=== PATIENT | female | born 1950 | race Caucasian/White ===

== ENCOUNTER → 2016-04-21 | Outpatient (CLI) | payer OTHER ==
[~2016-04-21] MED LIST: CALC500C70 PO; CHOL100027 PO; CITA20TA9 PO; GABA600T PO; MULT-506 PO; NRN/300 PO; TIMO0.2534 OPR
[2016-04-21 16:53] LABS: ALT/SGPT 22 U/L (12-78); BLOOD UREA NITROGEN 16 mg/dl (7-18); BUN/CREATININE RATIO 15.6 (10-20); CALCIUM 9.2 mg/dl (8.5-10.1); CARBON DIOXIDE 30 mmol/L (21-32); CHLORIDE 103 mmol/L (98-107); GLUCOSE 82 mg/dl (70-99); SODIUM 139 mmol/L (136-145)
[2016-04-21 17:06] LABS: ALKALINE PHOSPHATASE 57 U/L (45-117); AST/SGOT 23 U/L (15-37); PHOSPHORUS 3.1 mg/dl (2.5-4.9)
== END | disposition home or self-care (01) ==
LOC: C.LABBC 13:17
PROVIDERS: ATTEND Internal Medicine Endocrinology, Diabetes & Metabolism
DX: M81.0 Age-related osteoporosis without current pathological fracture (principal); E03.9 Hypothyroidism, unspecified; E55.9 Vitamin D deficiency, unspecified; Z78.0 Asymptomatic menopausal state

== ENCOUNTER → 2016-06-13 | Outpatient (CLI) | payer OTHER ==
[2016-06-13 17:20] LABS: BLOOD UREA NITROGEN 22 mg/dl (7-18); CREATININE 0.98 mg/dl (0.60-1.20)
== END | disposition home or self-care (01) ==
LOC: C.LABBC 15:15
PROVIDERS: ATTEND Physician Assistant
DX: M54.16 Radiculopathy, lumbar region (principal)

== ENCOUNTER → 2016-06-20 | Outpatient (CLI) | payer OTHER ==
[~2016-06-20] MED LIST changes: +GADAVIST IV PRN
--- NOTE | 2016-06-20 11:11 | DIAGNOSTIC IMAGING REPORT ---
LUMBAR SPINE MRI WITH AND WITHOUT CONTRAST HISTORY: Back pain. Neuropathy. LUMBAGO,LUMBAR RADICULOPATHY TECHNIQUE: Multiplanar multisequence MRI of the lumbar spine was performed both before and after the intravenous administration of contrast. COMPARISON: None. FINDINGS: For the purpose of the report the L5-S1 disc space will be located on axial image 27 of 30. Severe degenerative disc change at the entire lumbar region. Reactive edematous change as well as degenerative erosive change of vertebral endplates throughout. No evidence for compression deformity. Postcontrast sagittal images suggest potential mild enhancement of the lower aspect of the thoracic cord regions as well as the nerve root structures. Possibly of a component of arachnoiditis is considered. L1-L2: Minimal broad-based disc bulge. L2-L3: Mild osteophytic narrowing of the neuroforamina bilaterally. Mild broad-based disc bulge. L3-L4: Broad-based bulging disc. Moderate narrowing of the neuroforamina bilaterally. L4-L5: Mild broad-based disc bulge. Minimal impact of the anterior thecal sac. Moderate narrowing of the right and to lesser extent left neural foramina. L5-S1: Moderate osteophytic narrowing of the neuroforamina bilaterally. No impact upon the thecal sac. Posterior bulging disc. IMPRESSION: 1. Severe degenerative change throughout the entire lumbar region. 2. 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 Broad-based bulging disc components at virtually all levels of the lumbar region with at least moderate narrowing of the neural foramina bilaterally at multiple levels. 4. No evidence for a high-grade/degree of spinal stenosis Electronically signed by: Sen Sarmiento M.D. 06/20/2016 11:10 AM Dictated Date/Time: 06/20/2016 11:05 AM
== END | disposition home or self-care (01) ==
LOC: C.MRIBC 09:42
PROVIDERS: ATTEND Physician Assistant
DX: M51.16 Intervertebral disc disorders with radiculopathy, lumbar region (principal)

== ENCOUNTER → 2016-10-06 | Outpatient (CLI) | payer OTHER ==
[~2016-10-06] MED LIST changes: -GADAVIST IV PRN
[2016-10-06 10:19] LABS: ALT/SGPT 24 U/L (12-78); AST/SGOT 19 U/L (15-37); BLOOD UREA NITROGEN 11 mg/dl (7-18); BUN/CREATININE RATIO 12.9 (10-20); CALCIUM 8.8 mg/dl (8.5-10.1); CARBON DIOXIDE 30 mmol/L (21-32); CHLORIDE 108 mmol/L (98-107); CHOLESTEROL 242 mg/dl (0-200); CREATININE 0.87 mg/dl (0.60-1.20); GLUCOSE 90 mg/dl (70-99); POTASSIUM 4.1 mmol/L (3.5-5.1); SODIUM 141 mmol/L (136-145); TRIGLYCERIDES 82 mg/dl (0-150); VERY LOW DENSITY LIPOPROT CALC 16 mg/dl
[2016-10-06 10:22] LABS: ALB/GLOB RATIO 1.1 (0.9-2); ALKALINE PHOSPHATASE 45 U/L (45-117); CHOLESTEROL/HDL RATIO 2.3; HDL CHOLESTEROL 107 mg/dl; LDL CHOLESTEROL CALCULATED 119 mg/dl
== END | disposition home or self-care (01) ==
LOC: C.LAB1850 08:20
PROVIDERS: ATTEND Physician Assistant
DX: Z00.00 Encounter for general adult medical examination without abnormal findings (principal); M81.0 Age-related osteoporosis without current pathological fracture

== ENCOUNTER → 2016-11-02 | Outpatient (CLI) | payer OTHER ==
--- NOTE | 2016-11-02 14:19 | MAMMOGRAPHY REPORT ---
BILATERAL DIGITAL SCREENING MAMMOGRAM TOMOSYNTHESIS WITH CAD: 11/02/2016 CLINICAL HISTORY: Routine screening. Patient has no complaints. TECHNIQUE: Breast tomosynthesis in addition to standard 2D mammography was performed. Current study was also evaluated with a Computer Aided Detection (CAD) system. COMPARISON: Comparison is made to exams dated: 10/30/2014 mammogram, 11/10/2015 mammogram, 10/24/2013 ma mmogram, 10/18/2012 mammogram, 10/18/2011 mammogram, and 10/21/2010 mammogram - [facility]. BREAST COMPOSITION: There are scattered areas of fibroglandular density in both breasts. FINDINGS: No suspicious masses, calcifications, or areas of architectural distortion are noted in ei ther breast. There has been no significant interval change compared to prior exams. Scattered bilater al benign-appearing calcifications are not significantly changed. Circumscribed benign-appearing 11 mm mass in the left upper outer quadrant is stable. IMPRESSION: ACR BI-RADS CATEGORY 2: BENIGN There is no mammographic evidence of malignancy. A 1 year screening mammogram is recommended. The pa tient will receive written notification of the results. Approximately 10% of breast cancers are not detected with mammography. A negative mammographic report should not delay biopsy if a clinically suggestive mass is present. Hollie Griggs M.D. /:11/02/2016 13:24:15 Metalworker: Gina GUALLPAR, M, [facility] letter sent: Normal 1/2 BI-RADS Code: ACR BI-RADS Category 2: Benign
== END | disposition home or self-care (01) ==
LOC: C.MAMM 12:00
PROVIDERS: ATTEND Obstetrics & Gynecology
DX: Z12.31 Encounter for screening mammogram for malignant neoplasm of breast (principal)

== ENCOUNTER → 2016-12-04 | Outpatient (CLI) | payer OTHER | END | disposition home or self-care (01) | LOC: C.MAMM 13:12 | PROVIDERS: ATTEND Physician Assistant | DX: M81.0 Age-related osteoporosis without current pathological fracture (principal); M85.832 Other specified disorders of bone density and structure, left forearm ==

== ENCOUNTER → 2017-03-13 | Outpatient (CLI) | payer OTHER ==
[2017-03-13 14:50] LABS: BLOOD UREA NITROGEN 20 mg/dl (7-18); CALCIUM 9.1 mg/dl (8.5-10.1); CARBON DIOXIDE 26 mmol/L (21-32); CREATININE 1.01 mg/dl (0.60-1.20); GLUCOSE 91 mg/dl (70-99); POTASSIUM 4.3 mmol/L (3.5-5.1); SODIUM 139 mmol/L (136-145)
== END | disposition home or self-care (01) ==
LOC: C.LABBC 10:34
PROVIDERS: ATTEND Nurse Practitioner Adult Health
DX: R03.0 Elevated blood-pressure reading, without diagnosis of hypertension (principal)

== ENCOUNTER 2022-12-29 14:32 | Inpatient (IN) ==
[2022-12-29 16:09] LABS: Basophils # (auto) 0.05 K/uL (0.00-0.20); Basophils % (auto) 0.6 %; Eosinophils # (auto) 0.38 K/uL (0.00-0.50); Eosinophils % (auto) 4.7 %; Hematocrit (blood only) 45.2 % (37.0-47.0); Hemoglobin 15.5 g/dl (12.0-16.0); Immature Granulocytes # (auto) 0.05 K/uL (0.01-0.20); Immature Granulocytes % (auto) 0.6 %; Lymphocytes # (auto) 3.47 K/uL (1.20-3.40); Lymphocytes % (auto) 42.9 %; Mean Corpuscular Hgb Conc 34.3 g/dL (32.0-36.0); Mean Corpuscular Volume 99.1 fL (80.0-100.0); Mean Platelet Volume 9.1 fL (9.4-12.4); Monocytes # (auto) 0.66 K/uL (0.11-0.59); Monocytes % (auto) 8.2 %; Neutrophils # (auto) 3.47 K/uL (1.40-6.50); Platelet Count 437 K/uL (130-400); RDW Coefficient of Variation 12.3 % (11.5-14.5); RDW Standard Deviation 44.9 fL (36.4-46.3); Red Blood Count 4.56 M/uL (4.20-5.40); White Blood Count 8.08 K/ul (4.8-10.8)
[2022-12-29 16:26] LABS: Albumin Globulin Ratio 1.4 (0.9-2); Albumin Level 4.5 gm/dl (3.4-5.0); BUN Creatinine Ratio 16.4 (10-20); Bilirubin,Total 0.6 mg/dl (0.2-1.0); Calcium 10.6 mg/dl (8.6-10.3); Creatinine Clr Calc Pharmacy 36.6 ml/min; Est GFR (African American) 58.1 ml/min; Est GFR (Non-African American) 50.1 ml/min; Globulin 3.2 gm/dl (2.5-4.0); Potassium 3.9 mmol/L (3.5-5.1); Total Protein 7.7 gm/dl (6.0-8.3)
[2022-12-29 16:31] LABS: Troponin I High Sensitivity 21.5 pg/ml (0-14)
[2022-12-29 16:38] LABS: INR 0.9 (0.9-1.1); Partial Thromboplastin Ratio 0.9; Partial Thromboplastin Time 25.9 Seconds (21.0-31.0); Prothrombin Time 10.4 Seconds (9.0-12.0)
--- NOTE | 2022-12-29 17:14 | XRay Report ---
SINGLE VIEW CHEST CLINICAL HISTORY: Atypical chest pain. FINDINGS: A PA chest radiograph is compared to study dated 09/23/2020. The cardiomediastinal silhouette is unremarkable. There is bibasilar scarring/atelectasis. The lungs and pleural spaces are otherwise clear. No pneumothorax is seen. The skeletal structures are osteopenic. The bony thorax is grossly i ntact. IMPRESSION: No acute cardiopulmonary abnormality. ACT 112: Negative or not required by law. Electronically signed by: Jarad Naik M.D. 12/29/2022 5:12 PM
--- NOTE | 2022-12-29 20:21 | Emergency Department Note ---
Impression & Plan Right upper quadrant abdominal pain, Hypertension, Non-ST elevation [place] (NSTEMI) ED Provider Note HISTORY OF PRESENT ILLNESS: Patient is a 72-year-old female presenting with right upper quadrant abdominal pain and hypertension. Patient reports that last night she awoke from sleep with right upper quadrant abdominal pain that radiates into her right upper back. States that she has not had much of an appetite throughout the day. Denies any vomiting or diarrhea. Denies any fevers. Denies any history of abdominal surgeries other than a section. She denies any substernal chest pain or shortness of breath. She denies any DVT or PE history. Denies any history of cardiac stents. She does report history of poorly controlled hypertension. Reports that she was previously on lisinopril, but developed lip swelling and was transition to losartan. However, she developed lip swelling again and her losartan was stopped. She was started in amlodipine this past week and her initial dose was 2.5. She continue to monitor her blood pressures at home and it noted it to be elevated so her doctor started her on 5 mg amlodipine. She states that her blood pressures are running in the 160s to 170s range. Denies any dysuria or hematuria. Patient denies any injury to her right side of her chest or her right upper quadrant. ROS: as above PHYSICAL EXAM: Constitutional: Patient appears in no acute distress. HENT: Head: Normocephalic and atraumatic. Eyes: EOMI, PERRL Mouth/Throat: Mucous membranes moist. Neck: Trachea midline. Neck supple. Cardiovascular: RRR, No murmurs, rubs or gallops. Intact distal pulses. Pulmonary/Chest: No respiratory distress. Breath sounds clear and equal bilaterally. No wheezes or rales. Abdominal: Abdomen soft, no rebound or guarding. RUQ TTP Musculoskeletal: No edema, tenderness or deformity noted. Skin: Warm and dry. No rash, erythema, pallor or cyanosis Psychiatric: Appropriate mood and affect for situation. Neurological: Alert and keenly responsive. CN II-XII grossly intact, moving all extremities equally and fully. MDM: - Vitals signs showed hypertension. - History obtained via patient. Patient presents with right upper quadrant abdominal pain and hypertension. Patient reports that she woke last night from sleep with pain in her right upper quadrant that radiates into her right back. States that she has not had much of an appetite throughout the day. Denies any vomiting or diarrhea. Denies any fevers. Denies any history of abdominal surgeries. Denies any substernal chest pain or shortness of breath. She states that the pain is worse with any sort of movement. She also reports that over the last week her blood pressures have been ranging in the 160s and above region. She has had multiple changes in her blood pressure medications. She previously been on lisinopril, which was then switched to losartan. She had reported angioedema to both of these and was transitioned this week to amlodipine 2.5 mg. She states that her pressures are still running high and her doctor recommended she start to 5 mg today. - Chronic conditions affecting care: HTN - Differential diagnoses include, but are not limited to: ACS; PE; pneumonia; cholecystitis; electrolyte abnormality - Order placed for continuous cardiac monitoring. At this time, monitor showed rate of 67 bpm with normal sinus rhythm, per my interpretation. - External medical records reviewed. Primary care visit note dated 12/25/2022 was reviewed. Patient was started on amlodipine 2.5 mg. - EKG reviewed by myself showed normal sinus rhythm. Rate 70 bpm. QTc 419. No acute ischemic changes. - Laboratory workup interpreted by myself showed normal WBC; stable electrolytes other than slight hypercalcemia (Ca 10.6); elevated troponin (21.5) - CXR negative for pneumonia, per my interpretation - CT abdomen/pelvis with IV contrast negative for acute pathology, per radiology. - Repeat troponin WNL. - Patient's SBP was elevated to 190 in ER. She has no substernal chest pain complaints, so her NSTEMI may be secondary to hypertension. - Discussion was had with bilingual social worker about patient's case and need for admission - Hospitalist consulted for admission - Patient admitted to [facility] for further evaluation and management. ASSESSMENT AND PLAN: Diagnosis: hypertension; NSTEMI; RUQ abdominal pain Plan: admit Past Med/Surg History Medical History Abnormal kidney function study Chronic constipation Diverticulitis Postmenopausal osteoporosis Lumbar degenerative disc disease Hypertension Depression with anxiety Arthritis Surgical History History of right cataract extraction Hx of cataract surgery History of hemorrhoidectomy History of D&C History of section History of laminectomy History of colonoscopy History of tooth extraction History of gynecologic surgery History of breast biopsy H/O oral surgery Family History Mother Hyperlipidemia Hypertension Father Colon cancer Hypertension Mother Hypothyroidism Grandmother (Paternal) Colon cancer Uncle Myocardial infarction Sister Breast cancer Other Family history of diabetes mellitus No family history of adverse response to anesthesia Denies family history of Ovarian cancer Prostate cancer Social History Smoking Status: Never smoker Second Hand Exposure: No; Do You Dip or Chew Tobacco: No; Hx Alcohol Use: Yes Alcohol type: wine Alcohol Intake Frequency: 2-3 x/Week Hx Substance Use: No Preferred Language: Divehi Communication Ability: Effective Visual Impairment: No Limitations Hearing Ability: Normal Data Technician Required: No Beliefs That Will Affect Care: None marital status: Current Living Situation: Spouse current occupational status: retired Feels Safe at Home: Yes Childhood Exposure to Second-Hand Smoke: Yes Diet: regular Dental Care, Regularly: Yes Physical Activity Frequency: 3-4 Times per Week Physical Activity Frequency Comment: walking, lifting weights Seatbelt Use: always Sunscreen Use: Yes Assistive Devices: Glasses Allergies Allergies Allergy/AdvReac Type Severity Reaction Status Date / Time YUNG Inhibitors AdvReac Severe Anaphylaxis Verified 12/26/22 13:43 losartan AdvReac Mild angioedema Uncoded 12/26/22 13:43 Home Meds Home Medications Medication Instructions Recorded Confirmed timolol maleate 0.5 % eye drops 1 drp ophthalmic (eye) BID 07/04/18 12/26/22 multivitamin 1 cap PO QAM 09/02/18 12/26/22 calcium carbonate 600 mg calcium 1,200 mg PO BID 09/16/18 12/26/22 (1,500 mg) tablet cholecalciferol (vitamin D3) 50 2,000 unit PO .COMPLEX 09/07/20 12/26/22 mcg (2,000 unit) capsule difluprednate 0.05 % eye drops 1 drp ophthalmic (eye) BID 11/24/20 12/26/22 (Durezol) linaclotide 145 mcg capsule 145 mcg PO Q OTHER DAY 11/24/20 12/26/22 (Linzess) diphenhydramine HCl 25 mg capsule 25 mg PO TID PRN 07/01/21 12/26/22 (ZzzQuil) mupirocin 2 % topical ointment 1 applic topical TID PRN 07/20/22 12/26/22 Previous Rx's Medication Instructions Recorded duloxetine 30 mg capsule,delayed 30 mg PO QAM #90 caps 04/25/22 release gabapentin 300 mg capsule 300 mg PO TID #270 caps 04/25/22 gabapentin 600 mg tablet 600 mg PO TID #270 tabs 11/10/22 methylprednisolone 4 mg tablets in 4 mg PO DIRECTED #21 ea 12/23/22 a dose pack (Medrol (Donald)) amlodipine 2.5 mg tablet 2.5 mg PO DAILY #30 tabs 12/26/22 Results & Data (ED) Vital Signs Vital Signs - 24 hr 12/29/22 14:59 12/29/22 19:33 12/29/22 19:52 Temperature 36.8 C Temperature Source Temporal Artery Scan Pulse Rate 83 74 Pulse Rate [Apical] 84 Pulse Rhythm [Apical] Respiratory Rate 18 18 Blood Pressure 148/93 H Blood Pressure [Left Arm] 195/104 H Blood Pressure Mean 111 Blood Pressure Mean [Left Arm] 134 Pulse Oximetry 99 100 Oxygen Delivery Method Room Air Room Air Sepsis Recent Fever Within 48 Hours No Sepsis New/Unexplained Change in Mental Status No Sepsis Action Taken by Nursing No Action Required 12/29/22 21:00 Temperature Temperature Source Pulse Rate Pulse Rate [Apical] 67 Pulse Rhythm [Apical] Regular Respiratory Rate 15 Blood Pressure Blood Pressure [Left Arm] 168/92 H Blood Pressure Mean Blood Pressure Mean [Left Arm] 117 Pulse Oximetry 99 Oxygen Delivery Method Room Air Sepsis Recent Fever Within 48 Hours Sepsis New/Unexplained Change in Mental Status Sepsis Action Taken by Nursing Laboratory Data 12/29/22 15:54 12/29/22 15:54 Lab Results 12/29/22 12/29/22 Range/Units 15:54 18:51 WBC 8.08 (4.8-10.8) K/ul RBC 4.56 (4.20-5.40) M/uL Hgb 15.5 (12.0-16.0) g/dl Hct 45.2 (37.0-47.0) % MCV 99.1 (80.0-100.0) fL MCH 34.0 (25.0-34.0) pg MCHC 34.3 (32.0-36.0) g/dL RDW Std Deviation 44.9 (36.4-46.3) fL RDW Coeff of Elias 12.3 (11.5-14.5) % Plt Count 437 H (130-400) K/uL MPV 9.1 L (9.4-12.4) fL Immature Gran % (Auto) 0.6 % Neut % (Auto) 43.0 % Lymph % (Auto) 42.9 % [place] % (Auto) 8.2 % Eos % (Auto) 4.7 % Baso % (Auto) 0.6 % Neut # (Auto) 3.47 (1.40-6.50) K/uL Lymph # (Auto) 3.47 H (1.20-3.40) K/uL [place] # (Auto) 0.66 H (0.11-0.59) K/uL Eos # (Auto) 0.38 (0.00-0.50) K/uL Baso # (Auto) 0.05 (0.00-0.20) K/uL Immature Gran # (Auto) 0.05 (0.01-0.20) K/uL PT 10.4 (9.0-12.0) Seconds INR 0.9 (0.9-1.1) APTT 25.9 (21.0-31.0) Seconds PTT Ratio 0.9 Sodium 140 (136-145) mmol/L Potassium 3.9 (3.5-5.1) mmol/L Chloride 100 (98-107) mmol/L Carbon Dioxide 33 H (21-32) mmol/L Anion Gap 7 (3-11) BUN 18 (6-23) mg/dl Creatinine 1.10 (0.6-1.2) mg/dl Est Cr Clr Drug Dosing 36.6 ml/min Est GFR ( Amer) 58.1 ml/min Est GFR (Non-Af Amer) 50.1 ml/min BUN/Creatinine Ratio 16.4 (10-20) Glucose 91 (70-99(Fasting)) mg/dl Calcium 10.6 H (8.6-10.3) mg/dl Total Bilirubin 0.6 (0.2-1.0) mg/dl AST 26 (13-39) U/L ALT 25 (7-52) U/L Alkaline Phosphatase 77 (34-104) U/L Troponin I High Sens 21.5 H 7.8 D (0-14) pg/ml Total Protein 7.7 (6.0-8.3) gm/dl Albumin 4.5 (3.4-5.0) gm/dl Globulin 3.2 (2.5-4.0) gm/dl Albumin/Globulin Ratio 1.4 (0.9-2) Administered Medications Discontinued Medications Ioversol (Optiray 320 100ml) 93 ml IV ONCE ONE Stop: 12/29/22 20:54 Last Admin: 12/29/22 20:54 Dose: 93 ml Documented By: [email or web address] Imaging Data Radiologist's Impression: Chest X-Ray 12/29/22 15:02 SINGLE VIEW CHEST CLINICAL HISTORY: Atypical chest pain. FINDINGS: A PA chest radiograph is compared to study dated 09/23/2020. The cardiomediastinal silhouette is unremarkable. There is bibasilar scarring/atelectasis. The lungs and pleural spaces are otherwise clear. No pneumothorax is seen. The skeletal structures are osteopenic. The bony thorax is grossly intact. IMPRESSION: No acute cardiopulmonary abnormality. ACT 112: Negative or not required by law. Electronically signed by: Jarad Naik M.D. 12/29/2022 5:12 PM Abdomen/Pelvis CT 12/29/22 20:16 Exam(s): CT ABDOMEN + PELVIS With Contrast IV Amt: 93 cc opti 320 EXAM: CT Abdomen and Pelvis With Intravenous Contrast CLINICAL HISTORY: Reason for exam: abdominal pain ruq. TECHNIQUE: Axial computed tomography images of the abdomen and pelvis with intravenous contrast. Automated exposure control was utilized for the study. A dose lowering technique was utilized adhering to the principles of ALARA. CONTRAST: Patient received 93 cc opti 320 of IV contrast COMPARISON: No relevant prior studies available. FINDINGS: Lung bases: Unremarkable. No mass. No consolidation. ABDOMEN: Liver: Hepatic steatosis. Gallbladder and bile ducts: Unremarkable. No calcified stones. No ductal dilation. Pancreas: Unremarkable. No mass. No ductal dilation. Spleen: Unremarkable. No splenomegaly. Adrenals: Unremarkable. No mass. Kidneys and ureters: Unremarkable. No solid mass. No hydronephrosis. Stomach and bowel: Unremarkable. No acute diverticulitis. No small bowel obstruction. No free air. PELVIS: Appendix: No findings to suggest acute appendicitis. Bladder: Decompressed urinary bladder. Reproductive: Unremarkable as visualized. ABDOMEN and PELVIS: Intraperitoneal space: See above. Bones/joints: Degenerative changes of the spine. No acute fracture. No dislocation. Soft tissues: Unremarkable. Vasculature: Atherosclerotic changes of the aorta. No abdominal aortic aneurysm. Lymph nodes: Unremarkable. No enlarged lymph nodes. IMPRESSION: 1. No acute diverticulitis. No small bowel obstruction. No free air. 2. Hepatic steatosis. Electronically signed by: Tera Barcenas MD 12/29/22 22:04 PM Discharge Plan Visit Data Chief Complaint: Rib Injury/Pain Stated Complaint: HYPERTENSION, RIB PAIN ED Provider: Katyh Fernandes Discharge Problem: Right upper quadrant abdominal pain, Hypertension, Non-ST elevation [place] (NSTEMI) Forms Stand Alone Forms: [facility] Prescriptions Prescriptions: No Action duloxetine 30 mg capsule,delayed release(DR/EC) 30 mg PO QAM Qty: 90 3RF gabapentin 300 mg capsule 300 mg PO TID Qty: 270 3RF Patient Comments: TOTALS 900 MG TID Rx Instructions: in addition to 600mg caps gabapentin 600 mg tablet 600 mg PO TID Qty: 270 3RF Patient Comments: TOTALS 900 MG TID multivitamin capsule 1 cap PO QAM diphenhydramine HCl [ZzzQuil] 25 mg capsule 25 mg PO TID PRN mupirocin 2 % ointment 1 applic topical TID PRN amlodipine 2.5 mg tablet 2.5 mg PO DAILY Qty: 30 2RF timolol maleate 0.5 % drops 1 drp OP BID Patient Comments: RIGHT EYE cholecalciferol (vitamin D3) 50 mcg (2,000 unit) capsule 2,000 unit PO .COMPLEX Patient Comments: takes in the am Rx Instructions: 2,000 units PO every other day; calcium carbonate 600 mg calcium (1,500 mg) tablet 1,200 mg PO BID Patient Comments: PO Take 2 tablets twice daily; difluprednate [Durezol] 0.05 % Drops 1 drp OPHTHALMIC (EYE) BID Patient Comments: in right eye Linzess 145 mcg Capsule 145 mcg PO Q OTHER DAY Patient Comments: takes in the am methylprednisolone [Medrol (Donald)] 4 mg tablets,dose pack 4 mg PO DIRECTED Qty: 21 0RF Rx Instructions: As directed on packaging Referrals Referrals: Pro,Sae Farmer MD [Primary Care Provider] -
[2022-12-29] MEDS ORDERED: OPTIRAY 320 100ml IV ONE (20:53)
--- NOTE | 2022-12-29 22:05 | CT Scan Report ---
Exam(s): CT ABDOMEN + PELVIS With Contrast IV Amt: 93 cc opti 320 EXAM: CT Abdomen and Pelvis With Intravenous Contrast CLINICAL HISTORY: Reason for exam: abdominal pain ruq. TECHNIQUE: Axial computed tomography images of the abdomen and pelvis with intravenous contrast. Automated exposure control was utilized for the study. A dose lowering technique was utilized adhering to the principles of ALARA. CONTRAST: Patient received 93 cc opti 320 of IV contrast COMPARISON: No relevant prior studies available. FINDINGS: Lung bases: Unremarkable. No mass. No consolidation. ABDOMEN: Liver: Hepatic steatosis. Gallbladder and bile ducts: Unremarkable. No calcified stones. No ductal dilation. Pancreas: Unremarkable. No mass. No ductal dilation. Spleen: Unremarkable. No splenomegaly. Adrenals: Unremarkable. No mass. Kidneys and ureters: Unremarkable. No solid mass. No hydronephrosis. Stomach and bowel: Unremarkable. No acute diverticulitis. No small bowel obstruction. No free air. PELVIS: Appendix: No findings to suggest acute appendicitis. Bladder: Decompressed urinary bladder. Reproductive: Unremarkable as visualized. ABDOMEN and PELVIS: Intraperitoneal space: See above. Bones/joints: Degenerative changes of the spine. No acute fracture. No dislocation. Soft tissues: Unremarkable. Vasculature: Atherosclerotic changes of the aorta. No abdominal aortic aneurysm. Lymph nodes: Unremarkable. No enlarged lymph nodes. IMPRESSION: 1. No acute diverticulitis. No small bowel obstruction. No free air. 2. Hepatic steatosis. Electronically signed by: Tera Barcenas MD 12/29/22 22:04 PM
--- NOTE | 2022-12-29 22:58 | History & Physical Report ---
Date of Service December 29, 2022 Assessment & Plan (1) Abdominal pain: Plan: -Acute RUQ abdominal pain of 1 day's duration with negative CTAP, no leukocytosis, afebrile on admission -Suspect her pain may be more muscular/biomechanical in nature -Pain control- Tylenol PRN, Toradol PRN -May consider targeting biomechanical pain relief in AM- magnesium, Valium, heating pad, etc -With associated poor oral intake over past day, will provide IV fluid repletion at maintenance -With negative CTAP, will defer further imaging for now (2) Elevated troponin: Plan: -Mild troponin elevation to 21.5 on admission with resolution and unremarkable EKG -Mild type 2 demand OH/ischemia -TTE ordered -Telemetry monitoring (3) Hypertension: Plan: -Poorly controlled HTN with failure of lisinopril and losartan due to angioedema -BP elevated on admission- may be driven by her abdominal pain and recent Medrol dose pack though HTN control likely suboptimal at present -Currently on amlodipine 5 mg, will continue at this dose and consider increase to 10 mg on discharge (4) Chronic kidney disease, stage III (moderate): Plan: -Cr at baseline -Monitor BMP (5) Lumbar degenerative disc disease: Plan: -Continue gabapentin, duloxetine (6) Depression with anxiety: Plan: -Continue duloxetine (7) Hypercalcemia: Plan: -Mild Ca elevation to 10.6 on admission -Fluid repletion as above -Monito BMP (8) Glaucoma: Plan: -Continue Durezol, timolol Plan FENGI: Heart healthy Code status: Full DVT prophylaxis: Lovenox Isolation: None Unit: Medical/surgical with telemetry Disposition planning: Anticipate home History of Present Illness Chief Complaint: Abdominal pain Primary Care Provider: Sae Machuca MD Pt is 72 yo F with PMH HTN, CKD3, depression, lumbar DDD with radiculopathy presenting with abdominal pain. Pt reports onset of acute RUQ abdominal pain the previous night with radiation into upper back. Pain is constant, mostly sharp but occasionally dull, 5/10 severity with exacerbation to 9/10 with any movement. She has not tried any alleviating measures and has never had pain like this before. Pt has not had any oral intake this past day. Denies fever, chills, N/V/D, chest pain, dyspnea. She was previously on lisinopril for HTN but switched to losartan due to angioedema. Angioedema persisted for which she presented to ER on 12/23 and was discharged with Medrol dose pack. Pt was started on amlodipine earlier in week and notes BP at home remained elevated so PCP increased dose to 5 mg which was to start today. Pt arrived to ER with BP elevation to 160s-190s/80s-100s. Initial evaluation significant for Ca 10.6, troponin 21.5 -> 8 -> 4. CBC, CMP otherwise unremarkable. EKG unremarkable. CXR negative, CTAP negative. No interventions given in ER. At present, pt reports continued pain. No new complaints. Allergies Allergy/AdvReac Type Severity Reaction Status Date / Time losartan Allergy Severe ANGIOEDEMA Verified 12/30/22 00:45 YUNG Inhibitors AdvReac Severe Anaphylaxis Verified 12/26/22 13:43 Home Medications Medication Instructions Recorded Confirmed Type multivitamin 1 cap PO QAM 09/02/18 12/29/22 History calcium carbonate 600 mg calcium 1,200 mg PO BID 09/16/18 12/29/22 History (1,500 mg) tablet cholecalciferol (vitamin D3) 50 2,000 unit PO .COMPLEX 09/07/20 12/29/22 History mcg (2,000 unit) capsule gabapentin 300 mg capsule 300 mg PO TID #270 caps 04/25/22 12/29/22 Rx gabapentin 600 mg tablet 600 mg PO TID #270 tabs 11/10/22 12/29/22 Rx Zzzquil Ultra 1 tab PO HS 12/29/22 12/29/22 History amlodipine 2.5 mg tablet 5 mg PO QAM 12/29/22 12/29/22 History difluprednate 0.05 % eye drops 1 drp OPR QAM 12/29/22 12/29/22 History duloxetine 30 mg capsule,delayed 30 mg PO QAM 12/29/22 12/29/22 History release linaclotide 290 mcg capsule 290 mcg PO QAM 12/29/22 12/29/22 History (Linzess) timolol maleate 0.5 % eye drops 1 drp OPB BID 12/29/22 12/29/22 History Past Med/Surg History Medical History (Updated 12/30/22 @ 17:52 by Jatin Lewis MD) Abnormal kidney function study HX OF ABNORMAL KIDNEY LEVELS/MONITORS Chronic constipation Diverticulitis HX "DIVERTICULI" MENTIONED WITH PAST COLONOSCOPY Postmenopausal osteoporosis Lumbar degenerative disc disease WITH LEG PAIN Hypertension Depression with anxiety Arthritis Surgical History History of right cataract extraction Hx of cataract surgery History of hemorrhoidectomy History of D&C History of section History of laminectomy History of colonoscopy History of tooth extraction History of gynecologic surgery excision of gynecologic lesions History of breast biopsy H/O oral surgery Family History Mother Hyperlipidemia Hypertension Father Colon cancer Hypertension Mother Hypothyroidism Grandmother (Paternal) Colon cancer Uncle Myocardial infarction Sister Breast cancer Other Family history of diabetes mellitus No family history of adverse response to anesthesia Denies family history of Ovarian cancer Prostate cancer Social History Smoking Status: Never smoker Second Hand Exposure: No; Do You Dip or Chew Tobacco: No; Hx Alcohol Use: Yes Alcohol type: wine Alcohol Intake Frequency: 2-3 x/Week Hx Substance Use: No Preferred Language: [place] Communication Ability: Effective Visual Impairment: No Limitations Hearing Ability: Normal Handle Attacher Required: No Beliefs That Will Affect Care: None marital status: Current Living Situation: Spouse current occupational status: retired Feels Safe at Home: Yes Childhood Exposure to Second-Hand Smoke: Yes Diet: regular Dental Care, Regularly: Yes Physical Activity Frequency: 3-4 Times per Week Physical Activity Frequency Comment: walking, lifting weights Seatbelt Use: always Sunscreen Use: Yes Assistive Devices: Glasses Review of Systems Review of Systems: Per HPI/Subjective Physical Exam Physical Exam: General: well-appearing, no acute distress HEENT: PERRL, EOMI, conjunctivae clear without injection, anicteric sclerae, moist mucous membranes, clear oropharynx without exudate or erythema Neck: supple, trachea midline, no thyromegaly, no JVD, no cervical lymphadenopathy CV: RRR, normal S1 and S2, no murmurs Resp: CTAB, no increased work of breathing, no crackles or wheezes Abd: Soft, tender to RUQ and R flank/torso and upper back, nondistended, no guarding or rebound, no hepatosplenomegaly, negative Carreno sign MSK: Normal bulk of all four extremities. Tight abdominal wall musculature noted on R side Neuro: AOx3, no focal motor or sensory deficits Skin: no rashes or lesions, warm and dry Ext: no LE peripheral edema or erythema, capillary refill <2s in all four extremities, 2+ LE peripheral pulses b/l Results & Data Results & Data Vital Signs (Past 12 Hours) Vital Signs Temp Pulse Pulse Resp BP BP Pulse Ox 12/29/22 21:00 67 15 168/92 H 99 12/29/22 19:52 74 12/29/22 19:33 84 18 195/104 H 100 12/29/22 14:59 36.8 C 83 18 148/93 H 99 O2 Del Method 12/29/22 21:00 Room Air 12/29/22 19:52 12/29/22 19:33 Room Air 12/29/22 14:59 Room Air Supervising Physician Co-Signing Physician Notes Attending addendum: I have supervised the medical residents activities, and agree with the H&P unless as otherwise noted. Assessment and Plan: NSTEMI/hypertension- The patient will be admitted to telemetry for serial cardiac enzymes, serial EKG's, cardiac rhythm monitoring and a 2-D echocardiogram with Dopplers. Initial troponin 21.5, with follow-up 7.8 Continue amlodipine Adding aspirin Likely type II supply/demand mismatch Check fasting lipid panel and hemoglobin A1c CKD stage III- Creatinine 1.10, close to baseline Follow serially Hypercalcemia- Calcium 10.6 on admission Likely secondary to mild dehydration IV fluids and recheck laboratories in a.m. Remaining orders and notations as noted Resident Activity Tracking Resident Involvement: Resident Care Provided Care Provided: Adult Hospital Medicine
[2022-12-30] MEDS ORDERED: LACTATED RINGER'S 1,000 ML IV SCH (00:13)
[2022-12-30] MEDS ORDERED: KETOROLAC TROMETHAMINE 15 MG/ML VIAL IV PRN (00:13)
[2022-12-30] MEDS ORDERED: ONDANSETRON INJ 2 MG/ML 2 ML VIAL IV PRN (00:13)
[2022-12-30] MEDS ORDERED: ACETAMINOPHEN 325 MG TAB PO PRN (00:13)
[2022-12-30] MEDS ORDERED: MELATONIN 3 MG TAB PO PRN (00:47)
[2022-12-30 06:55] LABS: Hematocrit (blood only) 40.1 % (37.0-47.0); Hemoglobin 13.8 g/dl (12.0-16.0); Mean Corpuscular Hemoglobin 33.7 pg (25.0-34.0); Mean Corpuscular Hgb Conc 34.4 g/dL (32.0-36.0); Mean Platelet Volume 9.2 fL (9.4-12.4); Platelet Count 352 K/uL (130-400); RDW Coefficient of Variation 11.9 % (11.5-14.5); RDW Standard Deviation 43.2 fL (36.4-46.3); Red Blood Count 4.09 M/uL (4.20-5.40); White Blood Count 6.46 K/ul (4.8-10.8)
[2022-12-30 07:28] LABS: BUN Creatinine Ratio 16.7 (10-20); Calcium 9.3 mg/dl (8.6-10.3); Creatinine Clr Calc Pharmacy 41.9 ml/min; Est GFR (African American) 68.5 ml/min; Est GFR (Non-African American) 59.1 ml/min; Potassium 3.9 mmol/L (3.5-5.1)
--- NOTE | 2022-12-30 08:08 | Hospitalist Progress Note ---
Date of Service December 30, 2022 Assessment & Plan (1) Abdominal pain: (2) Hypertension: (3) Chronic kidney disease, stage III (moderate): (4) Lumbar degenerative disc disease: Plan: -Continue gabapentin, duloxetine (5) Elevated troponin: (6) Depression with anxiety: Plan: -Continue duloxetine (7) Hypercalcemia: (8) Glaucoma: Plan Abdominal pain -Acute RUQ abdominal pain of 1 day's duration with negative CTAP, no leukocytosis, afebrile on admission -Suspect her pain may be more muscular/biomechanical in nature -Pain control- Tylenol PRN, Toradol PRN -May consider targeting biomechanical pain relief in AM- magnesium, Valium, heating pad, etc -With associated poor oral intake over past day, will provide IV fluid repletion at maintenance -Negative CT-AP, but with positive Carreno's sign, US gallbladder ordered to rule out cholecystitis --> results pending Hypertension -Poorly controlled HTN with failure of lisinopril and losartan due to angioedema -BP elevated on admission- may be driven by her abdominal pain and recent Medrol dose pack though HTN control likely suboptimal at present -Currently on amlodipine 5 mg, will continue at this dose and consider increase to 10 mg on discharge CKD-stage III -Cr at baseline, 0.96 -Monitor BMP Lumbar degenerative disc disease - continue gabapentin, duloxetine Elevated troponin -Mild troponin elevation to 21.5 on admission with resolution and unremarkable EKG -Mild type 2 demand IN/ischemia -TTE ordered: Results normal, EF 65-70%, no RV of LV dysfunction noted -Telemetry monitoring Depression/anxiety -continue duloxetine Hypercalcemia -Mild Ca elevation to 10.6 on admission, 9.3 morning afterwards (12/30/22) -Fluid repletion as above -Monitor BMP Glaucoma -Continue Durezol, timolol Code status: Full DVT prophylaxis: Lovenox Isolation: None Unit: Medical/surgical with telemetry Disposition planning: Anticipate home Admission and Anticipated Discharge Date Admission Date: December 29, 2022 Subjective Spoke with patient today, feeling better, less pain over all. Spoke about PMHx and BP control, medications tried--periorbital edema noted w/ both lisinopril and losartan, currently on 5 mg amlodipine, daily. Patient noted back URQ abdominal pain began last night. Thought it could be musculoskeletal due to slight fall while hanging shower curtain jarret a week ago, but no pain felt until last night. Patient still has gall bladder and appendix. No history of appendicitis, gallstones, or cholecystitis. Review of Systems Constitutional: no fever and no chills Respiratory: no cough and no dyspnea Cardiovascular: no chest pain and no palpitations Gastrointestinal: + abdominal pain (RUQ pain, + Carreno's s ign); no nausea and no vomiting Genitourinary: no dysuria, no urinary frequency, no urinary urgency and no flank pain Musculoskeletal: no myalgia Physical Exam Constitutional: WD/WN, vitals as above Respiratory: normal respiratory effort, lungs clear to auscultation Cardiovascular: RRR, no murmur, no edema Gastrointestinal (Abdomen): Percussion/Palpation: + abdomen tender Musculoskeletal: Extremities: extremities normal to inspection Results & Data Results & Data Vital Signs (Past 12 Hours) Vital Signs Temp Pulse Pulse Pulse Resp BP BP 12/30/22 07:52 36.5 C 73 18 152/84 H 12/30/22 04:37 12/30/22 04:37 36.3 C L 75 18 161/86 H 12/30/22 03:47 36.4 C L 73 16 129/82 12/30/22 00:38 72 12/30/22 00:13 36.3 C L 75 18 161/86 H 12/29/22 23:46 74 16 165/93 H 12/29/22 23:00 72 13 173/97 H 12/29/22 21:00 67 15 168/92 H Pulse Ox O2 Del Method 12/30/22 07:52 98 Room Air 12/30/22 04:37 Room Air 12/30/22 04:37 98 Room Air 12/30/22 03:47 97 Room Air 12/30/22 00:38 12/30/22 00:13 Room Air 12/29/22 23:46 96 Room Air 12/29/22 23:00 99 Room Air 12/29/22 21:00 99 Room Air
[2022-12-30] MEDS ORDERED: TIMOLOL MALEATE 0.5% OP SOLN 5 ML BTL OP SCH (09:00)
[2022-12-30] MEDS ORDERED: DULoxetine HCL 30 MG CAP PO SCH (09:00)
[2022-12-30] MEDS ORDERED: ENOXAPARIN INJ 40 MG/0.4 ML SYR SQ SCH (09:00)
[2022-12-30] MEDS ORDERED: amLODIPine BESYLATE 5 MG TAB PO SCH (09:00)
[2022-12-30] MEDS: GABAPENTIN 600 MG TAB PO SCH ×2 (09:34→14:29)
[2022-12-30] MEDS: GABAPENTIN 300 MG CAP PO SCH ×2 (09:35→14:30)
--- NOTE | 2022-12-30 13:22 | XCELERA ---
[id number]
[2022-12-30] MEDS ORDERED: DIFLUPREDNATE OP SCH (14:00)
--- NOTE | 2022-12-30 14:33 | Ultrasound Report ---
US gallbladder CLINICAL HISTORY: RUQ pain, + Carreno's sign COMPARISON STUDY: CT of the abdomen and pelvis December 29, 2022 FINDINGS: No hepatic lesions are identified. There is no biliary ductal dilatation. Common bile duct measures 5 mm in caliber. The gallbladder is normal. There are no gallstones. Pancreas is unremarkabl e. There is no right hydronephrosis. IMPRESSION: No significant abnormality within the right upper quadrant by sonography. ACT 112: Negative or not required by law. Electronically signed by: Hayden Gonzalez M.D. 12/30/2022 2:31 PM
[2022-12-30 16:15] VITALS: BP 150/84; RESP 18; TEMP 98.1; O2SAT 98
--- NOTE | 2022-12-30 17:55 | Discharge Summary ---
Date of Service December 30, 2022 Admission HPI Per Admitting Provider Pt is 72 yo F with PMH HTN, CKD3, depression, lumbar DDD with radiculopathy presenting with abdominal pain. Pt reports onset of acute RUQ abdominal pain the previous night with radiation into upper back. Pain is constant, mostly sharp but occasionally dull, 5/10 severity with exacerbation to 9/10 with any movement. She has not tried any alleviating measures and has never had pain like this before. Pt has not had any oral intake this past day. Denies fever, chills, N/V/D, chest pain, dyspnea. She was previously on lisinopril for HTN but switched to losartan due to angioedema. Angioedema persisted for which she presented to ER on 12/23 and was discharged with Medrol dose pack. Pt was started on amlodipine earlier in week and notes BP at home remained elevated so PCP increased dose to 5 mg which was to start today. Pt arrived to ER with BP elevation to 160s-190s/80s-100s. Initial evaluation significant for Ca 10.6, troponin 21.5 -> 8 -> 4. CBC, CMP otherwise unremarkable. EKG unremarkable. CXR negative, CTAP negative. No interventions given in ER. At present, pt reports continued pain. No new complaints. Admission Exam Per Admitting Provider General: well-appearing, no acute distress HEENT: PERRL, EOMI, conjunctivae clear without injection, anicteric sclerae, moist mucous membranes, clear oropharynx without exudate or erythema Neck: supple, trachea midline, no thyromegaly, no JVD, no cervical lymphadenopathy CV: RRR, normal S1 and S2, no murmurs Resp: CTAB, no increased work of breathing, no crackles or wheezes Abd: Soft, tender to RUQ and R flank/torso and upper back, nondistended, no guarding or rebound, no hepatosplenomegaly, negative Carreno sign MSK: Normal bulk of all four extremities. Tight abdominal wall musculature noted on R side Neuro: AOx3, no focal motor or sensory deficits Skin: no rashes or lesions, warm and dry Ext: no LE peripheral edema or erythema, capillary refill <2s in all four extremities, 2+ LE peripheral pulses b/l Principal Diagnosis abdominal musculoskeletal injury Discharge Exam Constitutional WD/WN, vitals as above Respiratory normal respiratory effort, lungs clear to auscultation Cardiovascular RRR, no murmur, no edema Gastrointestinal (Abdomen) Percussion/Palpation: + abdomen tender Musculoskeletal Extremities: extremities normal to inspection Discharge Data Allergies Allergy/AdvReac Type Severity Reaction Status Date / Time losartan Allergy Severe ANGIOEDEMA Verified 12/30/22 00:45 YUNG Inhibitors AdvReac Severe Anaphylaxis Verified 12/26/22 13:43 Consultations 12/29/22 22:12 ED Decision to Admit Stat Ordered Studies 12/29/22 20:16 CT Abd and Pelvis [CT abd pelvis IV con only] Stat 12/30/22 10:47 US gallbladder Stat Hospital Course (1) Muscular abdominal pain in right upper quadrant: (2) Abdominal pain: (3) Hypertension: (4) Chronic kidney disease, stage III (moderate): (5) Lumbar degenerative disc disease: -Continue gabapentin, duloxetine (6) Elevated troponin: (7) Depression with anxiety: -Continue duloxetine (8) Hypercalcemia: (9) Glaucoma: Plan Abdominal pain -Acute RUQ abdominal pain of 1 day's duration with negative CTAP, no leuk ocytosis, afebrile on admission -Suspect her pain may be more muscular/biomechanical in nature -Pain control- Tylenol PRN, Toradol PRN -May consider targeting biomechanical pain relief in AM- magnesium, Valium, heating pad, etc -With associated poor oral intake over past day, will provide IV fluid repletion at maintenance -Negative CT-AP, but with positive Carreno's sign, US gallbladder ordered to rule out cholecystitis --> negative - Patient's pain likely due to muscular abdominal pain in RUQ, secondary to injury Hypertension -Poorly controlled HTN with failure of lisinopril and losartan due to angioedema -BP elevated on admission- may be driven by her abdominal pain and recent Medrol dose pack though HTN control likely suboptimal at present -Currently on amlodipine 5 mg, will continue at this dose and consider increase to 10 mg on discharge CKD-stage III -Cr at baseline, 0.96 -Monitor BMP Lumbar degenerative disc disease - continue gabapentin, duloxetine Elevated troponin -Mild troponin elevation to 21.5 on admission with resolution and unremarkable EKG -Mild type 2 demand MA/ischemia -TTE ordered: Results normal, EF 65-70%, no RV of LV dysfunction noted -Telemetry monitoring Depression/anxiety -continue duloxetine Hypercalcemia -Mild Ca elevation to 10.6 on admission, 9.3 morning afterwards (12/30/22) -Fluid repletion as above -Monitor BMP Glaucoma -Continue Durezol, timolol Code status: Full DVT prophylaxis: Lovenox Isolation: None Unit: Medical/surgical with telemetry Disposition planning: Anticipate home Total Time Total Time Spent Total Time Spent (In Minutes): <30 Discharge Plan Discharge Items Patient Disposition: Home - Self-Care Reason For Visit: CHEST/ABD PAIN, ELEVATED TROPONIN Discharge Diagnosis: right musculoskeletal abdominal pain Activity: Per Instructions section Non-emergency contact: Primary Care Provider Call non-emergency contact if: your pain is not controlled Follow-up/Referrals: Sae Machuca MD [Primary Care Provider] - Diet: Regular Addtl Attending Provider Instructions: You were admitted to the hospital for [_]. You were treated with [_]. A discharge summary will be sent to your primary care physician to ensure continuity of care. Please bring this discharge summary with you to your next office appointment so that your provider can review it at that time. Follow-up appointments: [ Make a follow-up appointment with your PCP within the next week. It is very important that you follow up with them shortly after discharge from the hosp ital.] [ We have requested a follow-up appointment with your primary care physician within one week of discharge. Please call their office if you do not hear from them.] [ You have an appointment with _ on _ at _. If you are unable to make this appointment, or have any other questions, their office can be reached at _.] Keep all your follow-up appointments as already scheduled. If you cannot make an appointment, notify your provider. Medications: Your medication list has been reviewed and reconciled upon discharge to ensure accuracy and continuity of care. An updated list of all your medications is included with your hospital discharge paperwork. Please review this list closely, and make note of any changes. Take your medications as instructed; do not skip a dose of your medicines. Make sure all of your doctors know every medicine you are taking (including [id number] medicines, vitamins, and supplements). Call your primary care provider before taking any new medicines (including nhvp-rtb-lidfekb medicines, vitamins, and supplements), because some of these may interact with your current medications, or may make your symptoms worse. Tell your primary care provider if you cannot afford your medications. CONTACT YOUR PRIMARY CARE PROVIDER if you experience any of the following: Difficulty following your treatment plan, or difficulty taking medications CALL 911 OR GO TO THE EMERGENCY DEPARTMENT if you experience any of the following: Sudden, severe abdominal pain or nausea/vomiting Severe chest pain, or chest pain that radiates (moves) to your jaw or arm Sudden, severe shortness of breath or difficulty breathing Thank you for allowing us to participate in your care Pending Studies at Discharge: No Stand-Alone Forms: My [facility], Smoking Cessation Medications and DC Order Prescriptions: Continued gabapentin 300 mg capsule 300 mg PO TID Qty: 270 3RF Patient Comments: TOTALS 900 MG TID Rx Instructions: in addition to 600mg caps gabapentin 600 mg tablet 600 mg PO TID Qty: 270 3RF Patient Comments: TOTALS 900 MG TID multivitamin capsule 1 cap PO QAM cholecalciferol (vitamin D3) 50 mcg (2,000 unit) capsule 2,000 unit PO .COMPLEX Patient Comments: takes in the am Rx Instructions: 2,000 units PO every other day; calcium carbonate 600 mg calcium (1,500 mg) tablet 1,200 mg PO BID Patient Comments: PO Take 2 tablets twice daily; amlodipine 2.5 mg tablet 5 mg PO QAM duloxetine 30 mg capsule,delayed release(DR/EC) 30 mg PO QAM Linzess 290 mcg capsule 290 mcg PO QAM Zzzquil Ultra 1 tab PO HS Rx Instructions: unknown strength timolol maleate 0.5 % drops 1 drp OPB BID difluprednate 0.05 % drops 1 drp OPR QAM Discharge Orders: Discharge Order (Routine); Ordered 12/30/22 Ordered By: Jatin Lewis Admission Data Admit Date/Time: 12/29/22 22:57 Attending Provider: Jonathon Barbour Admit Provider: Dieter Connor Primary Care Provider: Sae Machuca Other Providers: Stephon Aguiar Other Interventions: Discharge Summary Assessment (RN) Last Done: 12/30/22 18:13 Supervising Physician Co-Signing Physician Notes I personally examined the patient and verified all vergara points of history and exam, discussed case, and agree with decision making with Dr Lewis Pain a little bit better. Notes that it is right-sided upper abdominal/lower rib. Seems to be sharp in nature, 56 out of 10 intensity, somewhat worse with a deep breath, definitely worse with any sort of rolling over or sitting up. Started about 2 days ago does not really seem to be getting worse. Vitals noted, in general she is awake and alert pleasant no distress. HEENT normocephalic atraumatic mucous membranes moist. Breathing unlabored no accessory muscle use good effort. Rib cage shows right lower ribs to be decreased range of motionstuck more or less in an exhalation posterior, fairly tender 10th rib around mid axillary line versus the upper abdomen mid axillary line no guarding rebound or rigidity. Balanced ligamentous tension done with some improvement, and stretches shown. Labs and diagnostics noted. Chest painappears to be rib related. Right upper quadrant ultrasound reassuring, symptoms and exam fit the most with rib/upper abdominalOMT as above. Voltaren gel 4 times daily, stretches outlined. Outpatient follow-up. Hypertensionunfortunately had angioedema related to her lisinopril, followed by presumed angioedema related to her losartan, and is now on amlodipine. Has been on steroids twice, all of this would certainly lead to no realistic expectation of decent blood pressure control immediately. Her numbers are reasonable given the situation, she shows no symptoms related to her blood pressure, and does not appear to be high risk for hypertensive crisis. Continue amlodipine, follow blood pressure at home, follow-up as an outpatient. Very mildly elevated troponinnonspecific, probably essentially upper limits of normal needs mildly false positive. No evidence of MA/heart strain/etc. Echocardiogram reassuring. Safe/stable for home. Otherwise as above
[2022-12-30 18:13] VITALS: PULSE 72
--- NOTE | 2022-12-30 18:17 | Billing Data ---
Date of Service December 30, 2022 Coding Level of Care Code 27597 IN/OBS DISCH 30 MIN/LESS
--- NOTE | 2022-12-30 20:08 | Billing Data ---
Date of Service December 30, 2022 Coding Level of Care Code 40634 INT INP/OBS CARE
--- NOTE | 2022-12-31 19:27 | Electrocardiogram Report ---
Test Reason : Blood Pressure : / mmHG Vent. Rate : 070 BPM Atrial Rate : 070 BPM P-R Int : 132 ms QRS Dur : 062 ms QT Int : 388 ms P-R-T Axes : 020 013 025 degrees QTc Int : 419 ms Normal sinus rhythm Normal ECG When compared with ECG of 18-OCT-2006 22:28, Questionable change in QRS axis Confirmed by Anuj Nunze ([id number]) on 12/31/2022 7:27:43 PM Referred By: Confirmed By:Anuj Nunez
== END 2022-12-30 18:40 | disposition home or self-care (01) | DRG 391 ==
LOC: ED 14:32 → OBSVTOIN 22:57 → 2N 22:57 → INTOOBSV 22:57 → SUATTDRO 22:57 → 2N 23:46
DX: I21.A1 Myocardial infarction type 2; I21.4 Non-ST elevation (NSTEMI) myocardial infarction; H40.9 Unspecified glaucoma; I12.9 Hypertensive chronic kidney disease with stage 1 through stage 4 chronic kidney disease, or unspecified chronic kidney disease; R77.8 Other specified abnormalities of plasma proteins; R10.11 Right upper quadrant pain; Z88.8 Allergy status to other drugs, medicaments and biological substances; Z79.899 Other long term (current) drug therapy; M51.36 Other intervertebral disc degeneration, lumbar region; Z91.048 Other nonmedicinal substance allergy status; E83.52 Hypercalcemia; N18.30 Chronic kidney disease, stage 3 unspecified